=== PATIENT | female | born 1970 | race Hispanic/Latino ===

== ENCOUNTER 2024-06-15 15:35 | Emergency (ER) | payer OTHER ==
[2024-06-15] MEDS ORDERED: Boostrix 0.5 ML (Tdap) VIAL (>/=7 yrs of age) ONE (16:02)
[2024-06-15] MEDS ORDERED: Triple Antibiotic Oint 1 GM Packet ONE (16:02)
== END 2024-06-15 16:36 | disposition home or self-care (01) ==
LOC: BURERS 15:35
DX: T14.8XXA Other injury of unspecified body region, initial encounter (principal); S80.212A Abrasion, left knee, initial encounter; S80.211A Abrasion, right knee, initial encounter; S50.311A Abrasion of right elbow, initial encounter; I10 Essential (primary) hypertension; Z23 Encounter for immunization; W01.10XA Fall on same level from slipping, tripping and stumbling with subsequent striking against unspecified object, initial encounter
CPT/HCPCS: 90471; 90715